=== PATIENT | female | born 1985 | race Caucasian/White ===

== ENCOUNTER 2020-10-03 10:31 | Outpatient (CLI) | payer OTHER | END 2020-10-03 23:59 | disposition home or self-care (01) | LOC: STAR 10:31 | PROVIDERS: ATTEND Otolaryngology | DX: Z20.822 Contact with and (suspected) exposure to COVID-19 (principal); J34.89 Other specified disorders of nose and nasal sinuses; J34.2 Deviated nasal septum; J01.91 Acute recurrent sinusitis, unspecified; H92.02 Otalgia, left ear; M79.11 Myalgia of mastication muscle | CPT/HCPCS: U0003 ==

== ENCOUNTER 2020-10-09 07:30 | Day surgery (SDC) | payer OTHER ==
[~2020-10-09] VITALS: Ht 165.1 cm; Wt 77.9 kg
[2020-10-09] MEDS ORDERED: CHLORHEXIDINE 15 ML UDC MM ONE (08:30)
[2020-10-09] MEDS: LACTATED RINGERS 1,000 ML IV SCH ×2 (08:31→08:47)
[2020-10-09 08:38] LABS: HCG UR SG 1.026 (1.003-1.030)
[2020-10-09] MEDS ORDERED: ACETAMINOPHEN 500 MG TABLET ONE (08:55)
[2020-10-09] MEDS ORDERED: SCOPOLAMINE 1MG PATCH TD ONE (08:55)
[2020-10-09] MEDS ORDERED: MIDAZOLAM 1 MG/ML, 2ML ONE (08:57)
[2020-10-09] MEDS ORDERED: PROPOFOL 10 MG/ML, 20ML ONE (08:59)
[2020-10-09] MEDS ORDERED: SUCCINYLCHOLINE 20 MG/ML, 10ML ONE (08:59)
[2020-10-09] MEDS ORDERED: ROCURONIUM 10MG/ML,5ML ONE (08:59)
[2020-10-09] MEDS ORDERED: FENTANYL PF 250 MCG/5ML ONE (08:59)
[2020-10-09] MEDS ORDERED: DEXAMETHASONE 4 MG/ML, 1ML ONE (08:59)
[2020-10-09] MEDS ORDERED: SCOPOLAMINE 1MG PATCH TD SCH (09:00)
[2020-10-09] MEDS ORDERED: LIDOCAINE-MPF 2% ,5ML ONE (09:00)
[2020-10-09] MEDS ORDERED: CHLORHEXIDINE 15 ML UDC PO ONE (09:00)
[2020-10-09] MEDS ORDERED: ACETAMINOPHEN 500 MG TABLET PO ONE (09:00)
[2020-10-09] MEDS ORDERED: LIDOCAINE/PF 1%-EPI 1:200K, 30 ML ONE (09:13)
[2020-10-09] MEDS ORDERED: EPINEPHRINE TOPICAL SOLN 1 MG/ML, 30ML ONE (09:13)
[2020-10-09] MEDS ORDERED: FLUORESCEIN SODIUM 500 MG/5 ML ONE (09:14)
[2020-10-09] MEDS ORDERED: BACITRACIN OINT 500U/GM, 15 GM ONE (09:14)
[2020-10-09] MEDS ORDERED: OXYMETAZOLINE NASAL SPRAY 0.05%,30ML ONE (09:14)
[2020-10-09] MEDS ORDERED: CEFAZOLIN 1,000 MG ONE (09:23)
[2020-10-09] MEDS ORDERED: DIPHENHYDRAMINE 50 MG/ML, 1ML IVPush PRN ×2 (10:00)
[2020-10-09] MEDS ORDERED: DIAZEPAM 5 MG/ML, 2ML IVPush PRN (10:00)
[2020-10-09] MEDS ORDERED: ONDANSETRON 2MG/ML, 2ML IVPush PRN (10:00)
[2020-10-09] MEDS ORDERED: PROMETHAZINE 25 MG/ML, 1ML IVPush PRN (10:00)
[2020-10-09] MEDS ORDERED: EPHEDRINE 50 MG/ML, 1ML IVPush PRN (10:00)
[2020-10-09] MEDS ORDERED: LABETALOL 5MG/ML, 20ML IV PRN (10:00)
[2020-10-09] MEDS ORDERED: HYDROmorphone 1 MG/ML, 1ML INJ IVPush PRN (10:00)
[2020-10-09] MEDS ORDERED: ALBUTEROL SULFATE 2.5 MG/3 ML NPPB PRN (10:00)
[2020-10-09] MEDS ORDERED: hydrALAzine 20 MG/ML, 1ML IV PRN (10:00)
[2020-10-09] MEDS ORDERED: PROMETHAZINE 12.5 MG SUPP PR PRN (10:00)
[2020-10-09] MEDS ORDERED: MIDAZOLAM 1 MG/ML, 2ML IV PRN (10:00)
[2020-10-09] MEDS ORDERED: FENTANYL PF 100 MCG/2ML IV PRN (10:00)
[2020-10-09] MEDS: MEPERIDINE/PF 25MG/0.5ML IVPush PRN ×2 (12:00→12:34)
[2020-10-09] MEDS ORDERED: MEPERIDINE/PF 25MG/ML,1ML ONE (12:04)
[2020-10-09] MEDS ORDERED: ONDA-89 PO (12:20)
[2020-10-09] MEDS ORDERED: IBUP-1623 PO (12:20)
[2020-10-09] MEDS ORDERED: OXYC5TAB2 PO (12:20)
[2020-10-09] MEDS ORDERED: ACET325T14 PO (12:20)
[2020-10-09] MEDS ORDERED: CLIN300C3 PO (12:20)
[2020-10-09] MEDS: OXYcodone 5 MG/5 ML ORAL.SOL UDC PO PRN ×2 (12:30→13:09)
[2020-10-09] MEDS ORDERED: OXYcodone 5 MG/5 ML ORAL.SOL UDC ONE (12:31)
== END 2020-10-09 14:25 | disposition home or self-care (01) ==
LOC: OUT 07:30
PROVIDERS: ATTEND Otolaryngology
DX: J34.2 Deviated nasal septum (principal); J34.3 Hypertrophy of nasal turbinates; J01.91 Acute recurrent sinusitis, unspecified; J33.8 Other polyp of sinus; J34.89 Other specified disorders of nose and nasal sinuses; H92.02 Otalgia, left ear
CPT/HCPCS: 30140; 30520; 31240; 31254; 31256; 81025; J0330; J0690; J1100; J2175; J2250; J2704; J3010; J7120; U0003